=== PATIENT | female | born 1975 | race Asian ===

== ENCOUNTER → 2023-01-26 | Outpatient (CLI) | payer OTHER ==
[~2023-01-26] MED LIST: CATHETER FLUSH 10 ML SYR IVP PRN
--- NOTE | 2023-01-26 12:48 | Diagnostic Imaging Report ---
RADIOPHARMACEUTICAL: 5.43 mCi Tc-99m Choletec IV INDICATION: Right upper quadrant pain. COMPARISON: None available. TECHNIQUE: Anterior dynamic imaging for 1 hour. Additional 60 minutes of imaging was performed after patient ingested an 8-ounce can of Ensure Plus. FINDINGS: There is homogenous uptake throughout the liver. The gallbladder is visualized at 15 minutes and small bowel at 40 minutes. After ingesting an 8-ounce can of Ensure Plus, the gallbladder ejection fraction was calculated to be 58%, which is within normal limits. IMPRESSION: 1. Normal HIDA Scan without evidence of cystic or common duct obstruction. 2. Normal GBEF of 58%. Dictated by: Dictated on workstation # [id number]
== END ==
LOC: CARD 09:29 → EDBD 10:00
PROVIDERS: ATTEND Family Medicine
DX: R10.11 Right upper quadrant pain (principal)
CPT/HCPCS: 78227